=== PATIENT | female | born 1990 | race Hispanic/Latino ===

== ENCOUNTER 2024-07-03 05:49 | Inpatient (IN) | payer OTHER ==
[2024-07-03 06:21] VITALS: BMI 31.6
[2024-07-03] MEDS ORDERED: Diphenoxylate HCl/Atropine Tablet PO PRN ×2 (07:23)
[2024-07-03] MEDS ORDERED: Tranexamic Acid 1,000 MG/10 ML VIAL IVP PRN (07:23)
[2024-07-03] MEDS ORDERED: Carboprost 250 MCG/ML AMP IM PRN (07:23)
[2024-07-03] MEDS ORDERED: Ondansetron PF 4 MG/2 ML Vial IVP PRN (07:23)
[2024-07-03] MEDS ORDERED: Methylergonovine 0.2 MG/ML VIAL IM PRN (07:23)
[2024-07-03] MEDS ORDERED: hydrALAZINE 20 MG/ML VIAL SLOW IVP PRN (07:23)
[2024-07-03] MEDS ORDERED: Lidocaine 1% (PF) 30 ML VIAL SC PRN (07:23)
[2024-07-03] MEDS ORDERED: Promethazine HCl 25 MG/ML VIAL IM PRN (07:23)
[2024-07-03] MEDS: Misoprostol 100 MCG TAB VAG SCH (07:48)
[2024-07-03] MEDS ORDERED: ePHEDrine Sulfate 50 MG/10 ML VIAL ONE (08:00)
[2024-07-03] MEDS ORDERED: Bupivacaine PF 0.5% 30 ML VIAL ONE (08:00)
[2024-07-03] MEDS: Lactated Ringer's 1,000 ML IV SCH (11:10)
[2024-07-03 12:40] LABS: Mean Corpuscular HGB CONC 32.3 g/dL (32.0-36.0); Mean Corpuscular Hemoglobin 29.4 pg (27.0-33.0); Mean Corpuscular Volume 91.2 fL (81.6-98.3); Mean Platelet Volume 10.3 fL (7.4-10.4); Platelet Count 248 10x3/uL (150-450); RBC Distribution Width 13.2 % (11.5-14.5); White Blood Cell (WBC) Count 7.9 10x3/uL (3.5-10.5)
[2024-07-03 13:08] LABS: HBsAg Index 0.18 S/CO (0-0.99); Hep B Surf Ag - L&D Non-Reactive S/CO (NonReactive)
[2024-07-03 13:09] LABS: Syphilis Antibody Nonreactive (Nonreactive); Syphilis Antibody Index 0.05 S/CO (<1.00 Non-Reactive)
[2024-07-03] MEDS: Oxytocin 30 units/NS 500 ML 500 ML IV SCH (14:51)
[2024-07-03] MEDS ORDERED: Famotidine 20 MG TAB PO PRN (23:36)
[2024-07-04] MEDS: fentaNYL/Ropivacaine Epidural 100 ML ONE (02:56)
[2024-07-04] MEDS ORDERED: Acetaminophen 325 MG TAB PO PRN (03:16)
[2024-07-04] MEDS ORDERED: diphenhydrAMINE 50 MG/ML VIAL IVP PRN (03:16)
[2024-07-04] MEDS ORDERED: Moisturizing Cream (Eucerin) 113 GM JAR TOP PRN (03:16)
[2024-07-04] MEDS ORDERED: Naloxone HCl 0.4 mg/ml Vial IVP PRN ×2 (03:16)
[2024-07-04] MEDS ORDERED: Promethazine HCl 25 MG/ML VIAL IM PRN (03:16)
[2024-07-04] MEDS ORDERED: Ondansetron PF 4 MG/2 ML Vial IVP PRN (03:16)
[2024-07-04] MEDS ORDERED: Lactated Ringer's 500 ML IV PRN (03:16)
[2024-07-04] MEDS: ePHEDrine Sulfate 50 MG/10 ML VIAL SLOW IVP PRN (03:21)
[2024-07-04] MEDS ORDERED: fentaNYL 2 mcg/Ropivacaine 0.2% Epidural 100 ML CADD EPIDURAL SCH (03:30)
[2024-07-04] MEDS ORDERED: Communication Order-Pharmacy FS SCH (03:30)
[2024-07-04] MEDS: Misoprostol 200 MCG TAB PR PRN (05:34)
[2024-07-04] MEDS: Ibuprofen 800 MG TAB PO PRN (05:59)
[2024-07-04] MEDS: Oxytocin 30 units/NS 500 ML 500 ML IV SCH (05:59)
[2024-07-04] MEDS ORDERED: ePHEDrine Sulfate 50 MG/10 ML VIAL SLOW IVP PRN (06:54)
[2024-07-04] MEDS ORDERED: Measles/Mumps/Rubella 10 MCG/0.5 ML VIAL SC ONE (08:38)
[2024-07-04] MEDS ORDERED: Misoprostol 200 MCG TAB VAG PRN (08:38)
[2024-07-04] MEDS ORDERED: Bisacodyl 10 MG SUPP PR PRN (08:38)
[2024-07-04] MEDS ORDERED: diphenhydrAMINE 25 MG CAP PO PRN (08:38)
[2024-07-04] MEDS ORDERED: hydrALAZINE 20 MG/ML VIAL SLOW IVP PRN (08:38)
[2024-07-04] MEDS ORDERED: Milk Of Magnesia 30 ML UDCUP PO PRN (08:38)
[2024-07-04] MEDS ORDERED: Preparation H Ointment 28 GM TUBE PR PRN (08:38)
[2024-07-04] MEDS ORDERED: Methylergonovine 0.2 MG/ML VIAL IM PRN (08:38)
[2024-07-04] MEDS ORDERED: Polyethylene Glycol 3350 17 GM Packet PO PRN (08:38)
[2024-07-04] MEDS ORDERED: Oxytocin 30 units/NS 500 ML 500 ML IV SCH (08:38)
[2024-07-04] MEDS ORDERED: Lanolin Ointment 7 GM TUBE TOP PRN (08:38)
[2024-07-04] MEDS: Docusate 100 MG CAP PO SCH (09:09)
[2024-07-04] MEDS: Prenatal Vitamin 1 TAB PO SCH (09:09)
[2024-07-04] MEDS: Ferrous Sulfate 325 MG TAB PO SCH (09:12)
[2024-07-04] MEDS: Boostrix 0.5 ML (Tdap) VIAL (>/=7 yrs of age) IM ONE (09:12)
[2024-07-04] MEDS: Ibuprofen 800 MG TAB PO SCH (13:20)
[2024-07-04] MEDS: Acetaminophen 325 MG TAB PO PRN (14:51)
[2024-07-04] MEDS: HYDROcodone/Acetaminophen 5/325 mg Tablet PO SCH (17:21)
[2024-07-04] MEDS ORDERED: HYDROcodone/Acetaminophen 5/325 mg Tablet PO SCH (17:30)
[2024-07-05 07:52] VITALS: BP 93/50; TEMP 98.5
== END 2024-07-05 13:30 | disposition home or self-care (01) | DRG 807 ==
LOC: CSHLD 05:49 → CSHPP 07-04 08:25
PROVIDERS: ADMIT Family Medicine; ATTEND Family Medicine
PROC: 10E0XZZ Delivery of Products of Conception, External Approach (ICD-10-PCS; principal; 2024-07-03)
DX: O26.643 Intrahepatic cholestasis of pregnancy, third trimester (principal); Z37.0 Single live birth; O99.02 Anemia complicating childbirth; D50.9 Iron deficiency anemia, unspecified; E74.39 Other disorders of intestinal carbohydrate absorption; O99.284 Endocrine, nutritional and metabolic diseases complicating childbirth; E78.79 Other disorders of bile acid and cholesterol metabolism; K76.89 Other specified diseases of liver; Z3A.39 39 weeks gestation of pregnancy
CPT/HCPCS: 36415; 51702; 85027; 86780; 86850; 86900; 86901; 87340; J0665; J2590; J7120; S3620